=== PATIENT | male | born 2000 | race Caucasian/White ===

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

== ENCOUNTER 2021-01-11 13:03 | Emergency (ER) | payer OTHER ==
[~2021-01-11] VITALS: Ht 172.7 cm; Wt 83.9 kg
[2021-01-11] MEDS ORDERED: ONDA4ODT MM (15:37)
== END 2021-01-11 15:47 | disposition home or self-care (01) ==
LOC: ER 13:03
DX: G43.909 Migraine, unspecified, not intractable, without status migrainosus (principal); F17.200 Nicotine dependence, unspecified, uncomplicated
CPT/HCPCS: 96374; 96375; 99283-25; J1200; J1885; J2405; J2765; J7030

== ENCOUNTER 2023-10-06 00:50 | Emergency (ER) | payer OTHER ==
[~2023-10-06] VITALS: Ht 170.2 cm; Wt 104.3 kg
[~2023-10-06 00:50] MED LIST changes: +ONDA4ODT MM
[2023-10-06 02:24] VITALS: BP 134/85
== END 2023-10-06 02:23 | disposition home or self-care (01) ==
LOC: ER 00:50
DX: S90.821A Blister (nonthermal), right foot, initial encounter (principal); S90.822A Blister (nonthermal), left foot, initial encounter; L60.0 Ingrowing nail; F17.200 Nicotine dependence, unspecified, uncomplicated; X58.XXXA Exposure to other specified factors, initial encounter
CPT/HCPCS: 99283

== ENCOUNTER 2024-10-05 19:14 | Emergency (ER) | payer OTHER ==
[~2024-10-05] VITALS: Ht 172.7 cm; Wt 83.9 kg
[2024-10-05 19:41] VITALS: BP 152/84
== END 2024-10-05 22:22 | disposition left against medical advice (07) ==
LOC: ER 19:14
DX: S80.861A Insect bite (nonvenomous), right lower leg, initial encounter (principal); Z53.21 Procedure and treatment not carried out due to patient leaving prior to being seen by health care provider; W57.XXXA Bitten or stung by nonvenomous insect and other nonvenomous arthropods, initial encounter

== ENCOUNTER 2024-10-19 09:37 | Emergency (ER) | payer OTHER ==
[~2024-10-19] VITALS: Ht 172.7 cm; Wt 113.4 kg
[2024-10-19 10:15] VITALS: BP 125/75
[2024-10-19] MEDS ORDERED: Ibuprofen 600 MG Tab PO ONE (10:20)
[2024-10-19] MEDS ORDERED: CEPH500 PO (11:25)
[2024-10-19] MEDS ORDERED: Bactrim Ds Tab1 EACH PO (11:25)
[2024-10-19] MEDS ORDERED: IBU600 M1 PO (11:32)
[2024-10-19] MEDS ORDERED: ACETAMINOPHEN500 MG PO (11:32)
== END 2024-10-19 11:31 | disposition home or self-care (01) ==
LOC: ER 09:37
DX: L02.415 Cutaneous abscess of right lower limb (principal); F17.200 Nicotine dependence, unspecified, uncomplicated
CPT/HCPCS: 99282; A9270

== ENCOUNTER 2025-03-23 17:40 | Emergency (ER) | payer OTHER ==
[~2025-03-23] VITALS: Ht 172.7 cm; Wt 113.4 kg
[~2025-03-23 17:40] MED LIST changes: +ACETAMINOPHEN500 MG PO; +Bactrim Ds Tab1 EACH PO; +CEPH500 PO; +IBU600 M1 PO
[2025-03-23 18:13] LABS: BASOPHILS ABSOLUTE AUTO 0.05 K/mm3 (0.00-0.23); BASOPHILS PERCENT AUTO 0 % (0-2); EOSINOPHILS ABSOLUTE AUTO 0.09 K/mm3 (0.00-0.68); EOSINOPHILS PERCENT AUTO 1 % (0-6); Hematocrit 44.5 % (37.0-53.0); Hemoglobin 14.9 g/dL (13.5-17.5); IMMATURE GRAN ABSOLUTE AUTO 0.07 K/mm3 (0.00-0.10); IMMATURE GRAN PERCENT AUTO 0 % (0-1); LYMPHOCYTES ABSOLUTE AUTO 2.41 K/mm3 (0.84-5.20); LYMPHOCYTES PERCENT AUTO 13 % (21-46); MONOCYTES ABSOLUTE AUTO 1.32 K/mm3 (0.16-1.47); MONOCYTES PERCENT AUTO 7 % (4-13); Mean Corpuscular HGB Conc 33.5 g/dL (31.5-36.5); Mean Corpuscular Volume 88 fL (80-100); NEUTROPHILS ABSOLUTE AUTO 14.86 K/mm3 (1.96-9.15); NEUTROPHILS PERCENT AUTO 79 % (41-73); NRBC ABSOLUTE 0.00 K/mm3 (0.00-0.02); NRBC Auto 0.0 /100 WBC (0.0-0.2); Platelet Count 209 K/mm3 (150-400); RDW Coefficient Variation 14.2 % (11.7-14.2); RDW Standard Deviation 45.7 fL (35.1-46.3)
[2025-03-23 18:35] LABS: Alanine Aminotransfer (ALT/SGP 30.0 U/L (12-78); Albumin, Blood 3.6 g/dL (3.4-5.0); Albumin/Globulin Ratio 1.1 (0.8-1.8); Anion Gap 6.0 mmol/L (3-11); Aspartate Aminotrans (AST/SGOT 12.0 U/L (12-37); Bilirubin, Total 0.7 mg/dL (0.1-1.0); Blood Urea Nitrogen 8.0 mg/dL (8-24); CO2, Blood 29.0 mmol/L (21-32); Calcium, Blood 8.3 mg/dL (8.5-10.1); Chloride, Blood 101.0 mmol/L (98-108); Creatinine, Blood 0.83 mg/dL (0.60-1.20); Globulin, Blood 3.2 g/dL (2.2-4.0); Glucose, Blood 129.0 mg/dL (70-99); Potassium, Blood 3.5 mmol/L (3.5-5.5); Sodium, Blood 132.0 mmol/L (136-145); Total Protein, Blood 6.8 g/dL (6.4-8.2)
[2025-03-23] MEDS ORDERED: FentaNYL Citrate 50 MCG/ML 2 ML Injection IV ONE ×2 (20:05→22:05)
[2025-03-23] MEDS ORDERED: Ondansetron HCl 2 MG / ML 2ML Vial IV ONE (20:05)
[2025-03-23] MEDS ORDERED: CefTRIAXone Sodium 1,000 MG in NS 100 ML IV ONE (20:05)
[2025-03-23] MEDS ORDERED: RX Prepack 6 Tabs Oxycodone 5mg UD ONE (20:40)
[2025-03-23] MEDS ORDERED: DOXY100 PO (20:59)
[2025-03-23] MEDS ORDERED: Percocet 5-3251 EACH PO (20:59)
[2025-03-23 21:23] LABS: Source, Urine Clean Catch
[2025-03-23 21:37] LABS: Bilirubin, Urine Neg (Neg); Color, Urine Yellow (P-Yellow); Glucose Qualitative, Urine Neg (Neg); Ketones, Urine Neg (Neg); Leukocyte Esterase, Urine Neg (Neg); Protein, Urine Neg (Neg); Specific Gravity, Urine 1.005 (1.003-1.022); Urobilinogen, Urine NORM (Normal)
[2025-03-23 22:30] VITALS: BP 115/67
== END 2025-03-23 22:47 | disposition home or self-care (01) ==
LOC: ER 17:40
PROVIDERS: Student in an Organized Health Care Education/Training Program
DX: N45.1 Epididymitis (principal); Z79.899 Other long term (current) drug therapy; Z79.2 Long term (current) use of antibiotics
CPT/HCPCS: 76870; 80053; 81003; 83605; 85025; 96365; 96375; 96376; 99284-25; A9270; J0696; J2405; J3010